=== PATIENT | female | born 1970 | race Hispanic/Latino ===

== ENCOUNTER 2024-03-28 14:05 | Emergency (ER) | payer BC, OTHER ==
--- OUTSIDE RECORDS SUMMARY | 2024-03-28 14:08 | XMS REPORT | Continuity of Care Document ---
Author Name Unknown Address [address] [place] [address] [facility] thconnect Address [address] [place] [address] Care Team Providers Care Time Stamp Assembler Name Role Phone El ROUSE, Lolita Primary Care Physician TATYANA LUGO Attending Clinician TATYANA Kolb Attending Clinician Brice beaulieu Doctor Unassigned, [place] Attending Clinician U navailable RADIOLOGY Attending Clinician Unavailable KAREN BLAEK Attending Clinician Unavailable Chinedu Wong MD Attending Clinician CHINEDU WONG Attending Clinician Unavail able Nurse, Gal Pcp Assessment Clinic Attending Denny baldwin Unavailable Sully Fishman MD Attending Clinician SULLY FISHMAN Attending Clinician Unavailable Payers Payer Name Policy Type Policy Number Effective Date Expirati on Date Source [facility] - OUT OF STATE [id number] 2022 00:00:00 Allergies, Adverse Reactions, Alerts Allergy Name Allergy Type Status Severity Reaction(s) Onset Date Inactive Date Treating Clinician Comments Source NO KNOWN ALLERGIE S Drug Class Active [facility] Social History Social Habit Start Date Stop Date Quantity Comments Source Gender identity [facility] Sexual orientation [facility] Alcohol intake 2022-12-01 00:00:00 2022-12-01 00:00:00 Current drinker of alcohol (finding) [facility] Tobacco use and exposure 2022-11-20 00:00:00 2022-11-20 00:00:00 Smokeless tobacco non-user [facility] History of Social function 2022-11-20 00:00:00 2022-11-20 00:00:00 [facility] Alcohol Comment 2022-11-20 00:00:00 2022-11-20 00:00:00 social [facility] Sex Assigned At 1970 00:00:00 1970 00:00:00 [facility] Smoking Status Start Date Stop Date Source Tobacco smoking consumption unknown [facility] Never smoked tobacco [facility] Medications Ordered Medication Name Filled Medication Name Start Date Stop Date Current Medication? Ordering Clinician Indication Dosage Frequency Signature (SIG) Comments Components Source rosuvastati n 5 mg tablet 2023-05 00:00: 00 Yes 1mg Jackson Samuel triamcinolo ne acetonide 0.1 % topical cream 2023-05 00:00: 00 Yes 1% Jackson Samuel nystatin 100,000 unit/gram topical cream 2023-05 00:00: 00 Yes 1unit/g gary Jackson Samuel cetirizine 10 mg tablet 2023-05 00:00: 00 Yes 1mg Jackson Samuel rosuvastati n 5 mg tablet 2023-05 00:00: 00 Yes 1mg Jackson Samuel amoxicillin 500 mg capsule 2023-05 00:00: 00 Yes 1mg Jackson Samuel 1 TAB PO QHS 06-17 00:00: 00 Yes 25 Jackson Samuel TAKE 1 TABLET BY MOUTH ONCE DAILY IN THE MORNING 30 MINUTES TO 1 HOUR BEFORE EATING OR DRINKING 05-15 00:00: 00 Yes Jackson Samuel TAKE ONE (1) TABLET(S) BY MOUTH ONCE A DAY AND SKIP PLACEBO. RESTART NEW PACK EVERY 3 WEEKS. 2022-05 00:00: 00 Yes Jackson Samuel 1 TABLET PO QD- NO PLACEBO- THEN RESTART A NEW PACK EVERY 3 WEEKS 2022-05 00:00: 00 06-18 00:00 :00 No 1530 Jackson Samuel TAKE 1 CAPSULE EVERY MORNING. 2022-05 00:00: 00 06-18 00:00 :00 No 10 Jackson Samuel TAKE ONE (1) CAPSULE(S) BY MOUTH EVERY MORNING. 2022-05 00:00: 00 06-18 00:00 :00 No Jackson Samuel TAKE 1 TABLET BY MOUTH EVERY 12 HOURS FOR 7 DAYS(NON [facility]) 11-30 00:00: 00 06-18 00:00 :00 No Jackson Samuel metroNIDAZO LE 500 mg tablet 11-30 00:00: 00 12-08 04:59 :00 No [id number] 500mg Take 1 tablet by mouth every 12 (twelve) hours for 7 days. [facility] 1 TABLET PO QD 10-23 00:00: 00 Yes 10 Jackson Samuel TAKE 1 TABLET DAILY. 10-23 00:00: 00 Yes 10 Jackson Samuel citalopram 20 mg tablet 10-22 00:00: 00 Yes 20mg Take 1 tablet by mouth in the morning. [facility] TAKE 1 TABLET DAILY. 10-21 00:00: 00 06-18 00:00 :00 No 20 Jackson Samuel TAKE 1 TABLET BY MOUTH EVERY DAY 07-02 00:00: 00 Yes Jackson Samuel TAKE 1 TABLET BY MOUTH EVERY DAY FOR 5 DAYS 01-10 00:00: 00 Yes Jackson Samuel TAKE 1 TABLET BY MOUTH EVERY DAY 01-10 00:00: 00 Yes Jackson Samuel TAKE 1 TABLET BY MOUTH EVERY DAY 11-29 00:00: 00 Yes Jackson Samuel Vital Signs Vital Name Observation Time Observation Value Comments S ource Systolic blood pressure 2022-11-20 20:45:00 146 mm[Hg] [facility] Diastolic blood pressure 2022-11-20 20:45:00 85 mm[Hg] [facility] Heart rate 2022-11-20 20:43:00 96 /min [facility] Respiratory rate 2022-11-20 20:43:00 18 /min [facility] Body height 2022-11-20 20:43:00 165.1 cm [facility] Body weight 2022-11-20 20:43:00 84.823 kg [facility] BMI 2022-11-20 20:43:00 31.12 kg/m2 [facility] Heart Rate 2024-03-23 16:07:00 87.00 /min Elizabeth en F Jimmie Respiratory Rate 2024-03-23 16:07:00 16.00 /min Jackson F Jimmie BP Systolic 2024-03-23 16:07:00 122 mm[Hg] Step hen F Jmimie BP Diastolic 2024-03-23 16:07:00 76 mm[Hg] Derrek phen F Jimmie Weight Measured 2024-03-23 16:07:00 197.00 pounds Jackson F Jimmie Height Measured 2024-03-23 16:07:00 65.00 inches Jackson F Jimmie Body Temperature 2024-03-23 16:07:00 97.90 degrees Jackson F Jimmie Height Measured 2024-03-12 13:04:00 65.00 inches Jackson F Jimmie Body Temperature 2024-03-12 13:04:00 98.00 degrees Jackson F Jimmie Heart Rate 2024-03-12 13:04:00 89.00 /min Elizabeth en F Jimmie Respiratory Rate 2024-03-12 13:04:00 18.00 /min Jackson F Jimmie BP Systolic 2024-03-12 13:04:00 122 mm[Hg] Step hen F Jimmie BP Diastolic 2024-03-12 13:04:00 70 mm[Hg] Derrek phen F Jimmie Weight Measured 2024-03-12 13:04:00 197.00 pounds Jackson F Jimmie BP Systolic 2023-06-17 13:42:00 126 mm[Hg] Step hen F Jimmie BP Diastolic 2023-06-17 13:42:00 66 mm[Hg] Derrek phen F Jimmie Weight Measured 2023-06-17 13:42:00 197.00 pounds Jackson F Jimmie Height Measured 2023-06-17 13:42:00 65.00 inches Jackson F Jimmie Body Temperature 2023-06-17 13:42:00 97.60 degrees Jackson F Jimmie Heart Rate 2023-06-17 13:42:00 95.00 /min Elizabeth en F Jimmie Respiratory Rate 2023-06-17 13:42:00 16.00 /min Jackson F Jimmie BP Systolic 2023-04-30 11:01:00 130 mm[Hg] Step hen F Jimmie BP Diastolic 2023-04-30 11:01:00 78 mm[Hg] Derrek phen F Ijmmie Weight Measured 2023-04-30 11:01:00 192.00 pounds Jackson F Jimmie Height Measured 2023-04-30 11:01:00 65.00 inches Jackson F Jimmie Body Temperature 2023-04-30 11:01:00 98.10 degrees Jackson F Jimmie Heart Rate 2023-04-30 11:01:00 97.00 /min Elizabeth en F Jimmie Respiratory Rate 2023-04-30 11:01:00 18.00 /min Jackson F Jimmie BP Systolic 2022-10-23 11:43:00 135 mm[Hg] Step hen F Jimmie BP Diastolic 2022-10-23 11:43:00 96 mm[Hg] Derrek phen F Jimmie Weight Measured 2022-10-23 11:43:00 182.00 pounds Jackson F Jimmie Height Measured 2022-10-23 11:43:00 65.00 inches Jackson F Jimmie Body Temperature 2022-10-23 11:43:00 96.90 degrees Jackson F Jimmie Heart Rate 2022-10-23 11:43:00 87.00 /min Elizabeth en F Jimmie Respiratory Rate 2022-10-23 11:43:00 18.00 /min Jackson F Jimmie BP Systolic 2022-10-21 08:08:00 124 mm[Hg] Step hen F Jimmie BP Diastolic 2022-10-21 08:08:00 80 mm[Hg] Derrek phen F Jimmie Weight Measured 2022-10-21 08:08:00 184.00 pounds Jackson F Jimmie Height Measured 2022-10-21 08:08:00 65.00 inches Jackson F Jimmie Body Temperature 2022-10-21 08:08:00 98.00 degrees Jackson F Jimmie Heart Rate 2022-10-21 08:08:00 93.00 /min Elizabeth en F Jimmie Respiratory Rate 2022-10-21 08:08:00 20.00 /min Jackson Samuel Procedures Procedure Date / Time Performed Performing Clinician Source EXTERNAL PROVIDER RECORDS 2023-05-26 06:01:00 Doctor Unassigned, [place] [facility] GC & CHLAMYDIA AMPLIFIED ASSAY 2022-11-20 21:05:00 Tatyana Lugo [facility] LAB ONLY PAP SMEAR-LIQUID BASED 2022-11-20 21:05:00 Tatyana Lugo [facility] HIGH RISK HPV-THIN PREP 2022-11-20 21:05:00 Tatyana Lugo [facility] TRICHOMONAS AMPLIFIED ASSAY 2022-11-20 21:05:00 Tatyana Lugo [facility] PAP SMEAR-LIQUID BASED-CP 2022-11-20 21:05:00 Tatyana Lugo [facility] ASSIGNMENT OF BENEFITS 2022-11-20 19:53:18 Docto r Unassigned, [place] [facility] Encounters Start Date/Time End Date/Time Encounter Type Admission Type Attending [facility] Facility Care Department Encounter ID Source 2024-03-23 16:16:21 2024-03-23 16:16:21 Outpatient [facility] [id number] Jackson Samuel 2024-03-23 00:00:00 2024-03-23 00:00:00 Outpatient Visit SFA [id number] Jackson Samuel 2024-03-12 13:02:57 2024-03-12 13:02:57 Outpatient SFA [facility] [id number] Jackson Samuel 2024-03-12 00:00:00 2024-03-12 00:00:00 Outpatient Visit SFA [id number] Jackson Samuel 2023-11-24 14:30:00 2023-11-24 14:30:00 Outpatient R TATYANA LUGO CHERYAL [facility] [id number] [facility] 2023-06-17 13:41:54 2023-06-17 13:41:54 Outpatient [facility] [id number] Jackson Samuel 2023-05-26 00:00:00 2023-05-26 00:00:00 Orders Only Doctor Unassigned, [place] [facility] 1.2.840.114 350.1.13.10 4.2.7.2.686 [id number] [facility] 2022-12-05 00:00:00 2022-12-05 00:00:00 Patient Secure Msg Doctor Unassigned, [place] [facility] 1.2.840.114 350.1.13.10 4.2.7.2.686 [id number] [facility] 2022-11-30 00:00:00 2022-11-30 00:00:00 Telephone Tatyana Lugo [facility] 1.2.840.114 350.1.13.10 4.2.7.2.686 [id number] [facility] 2022-11-25 09:30:00 2022-11-25 09:30:00 Outpatient R [facility] [id number] [facility] 2022-11-20 15:00:00 2022-11-20 16:10:19 Outpatient R TATYANA LUGO CHERYAL [facility] [id number] [facility] 2022-11-20 15:00:00 2022-11-20 16:10:19 Office Visit Tatyana Luog [facility] 1.2.840.114 350.1.13.10 4.2.7.2.686 [id number] [facility] 2022-11-20 00:00:00 2022-11-20 00:00:00 Orders Only Doctor Unassigned, [place] [facility] 1.2.840.114 350.1.13.10 4.2.7.2.686 [id number] [facility] 2022-11-08 00:00:00 2022-11-08 00:00:00 Outpatient R RADIOLOGY [facility] [id number] [facility] 2022-10-23 11:41:31 2022-10-23 11:41:31 Outpatient [facility] [id number] Jackson Samuel 2022-10-21 08:04:37 2022-10-21 08:04:37 Outpatient [facility] [id number] Jackson Samuel 2022-09-18 10:30:00 2022-09-18 10:30:00 Outpatient R KAREN BLAKE [facility] [id number] [facility] 2019-11-19 00:00:00 2019-11-19 00:00:00 Telephone [facility] 1.2840.114 350.1.13.10 4.2.7.2.686 [id number] [facility] 2019-11-19 00:00:00 2019-11-19 00:00:00 Telephone [facility] 1.2.840.114 350.1.13.10 4.2.7.2.686 [id number] 2019-11-18 10:00:00 2019-11-18 10:00:00 Outpatient R CHINEDU WONG [facility] [id number] [facility] 2019-11-18 09:16:27 2019-11-18 09:31:27 Laboratory Only Nurse, Gal Pcp Assessment Clinic [facility] 1.2.840.114 350.1.13.10 4.2.7.2.686 [id number] [facility] 2019-11-18 09:16:27 2019-11-18 09:31:27 Laboratory Only Nurse, Gal Pcp Assessment Clinic [facility] 1.2840.114 350.1.13.10 4.2.7.2.686 [id number] 2019-11-04 00:00:00 2019-11-04 00:00:00 [facility] 1.2.840.114 350.1.13.10 4.2.7.2.686 [id number] [facility] 2019-11-04 00:00:00 2019-11-04 00:00:00 Telephone Sravanthi [facility] 1.2.840.114 350.1.13.10 4.2.7.2.686 [id number] 2019-11-03 12:52:11 2019-11-03 13:07:11 Laboratory Only Nurse, Dagoberto Pcp Assessment Clinic Sravanthi [facility] 1.2.840.114 350.1.13.10 4.2.7.2.686 [id number] [facility] 2019-11-03 12:52:11 2019-11-03 13:07:11 Laboratory Only Nurse, Dagoberto Pcp Assessment Clinic [facility] 1.2.840.114 350.1.13.10 4.2.7.2.686 [id number] 2019-11-03 13:00:00 2019-11-03 13:00:00 Outpatient R SRAVANTHI [facility] [id number] [facility] Results Test Description Test Time Test Comments Results Result Co mments Source Jackson SamuelTRICHOMONAS, URINE, [id number] 00:00:00* Test Item Value Reference Range Interpretation Comme nts TRICHOMONAS, NAAT, URINE (te st code = 61678) NEGATIVE [facility] [id number] 00:00:00* Test Item Value Reference Range Interpretation Comme nts WBC (test code = 1001) 7.0 K/UL RBC (test code = 1002) 4.89 M/UL HEMOGLOBIN (test code = 1003) 13.2 G/DL HEMATOCRIT (test code = 1004) 41.9 % MCV (test code = 1005) 85.7 fL MCH (test code = 1006) 27.0 PG MCHC (test code = 1007) 31.5 G/DL RDW (test code = 1038) 12.2 % NEUTROPHILS (test code = 1008) 49.3 % LYMPHOCYTES (test code = 1010) 40.6 % MONOCYTES (test code = 1011) 8.0 % EOSINOPHILS (test code = 1012) 1.3 % BASOPHILS (test code = 1013) 0.7 % IMMATURE GRANULOCYTES (test code = 1036) 0.1 % NUCLEATED RBCS (test code = 1065) 0.0 /100WBC'S PLATELET COUNT (test code = 1015) 384 K/UL ABSOLUTE NEUTROPHILS (test c ode = 1066) 3.44 K/UL ABSOLUTE LYMPHOCYTES (test c ode = 1067) 2.84 K/UL ABSOLUTE MONOCYTES (test cod e = 1068) 0.56 K/UL ABSOLUTE EOSINOPHILS (test c ode = 1040) 0.09 K/UL ABSOLUTE BASOPHILS (test cod e = 1069) 0.05 K/UL ABS IMMATURE GRANULOCYTES (t est code = 1020) 0.01 K/UL ABS NUCLEATED RBCS (test cod e = 58206) 0.00 K/UL Jackson William AustinLIPID [id number] 00:00:00* Test Item Value Reference Range Interpretation Comme nts CHOLESTEROL (test code = 2210) 300 MG/DL TRIGLYCERIDES (test code = 2232) 387 MG/DL HDL CHOLESTEROL (test code = 2220) 43 MG/DL CALC LDL CHOL (test code = 2237) 191 MG/DL RISK RATIO LDL/HDL (test cod e = 2238) 4.44 RATIO Jackson SamuelCOMPREHENSIVE METABOLIC [id number] 00:00:00* Test Item Value Reference Range Interpretation Comme nts GLUCOSE (test code = 2217) 100 MG/DL BUN (test code = 2208) 15 MG/DL CREATININE (test code = 2214) 0.86 MG/DL eGFR (2020 CKD-EPI) (test co de = 55431) 82 ML/MIN/1.73 CALC BUN/CREAT (test code = 2235) 17 RATIO SODIUM (test code = 2231) 139 MEQ/L POTASSIUM (test code = 2228) 4.0 MEQ/L CHLORIDE (test code = 2215) 101 MEQ/L CARBON DIOXIDE (test code = 2206) 21 MEQ/L CALCIUM (test code = 2209) 9.7 MG/DL PROTEIN, TOTAL (test code = 2229) 7.5 G/DL ALBUMIN (test code = 2201) 4.5 G/DL CALC GLOBULIN (test code = 2240) 3.0 G/DL CALC A/G RATIO (test code = 2234) 1.5 RATIO BILIRUBIN, TOTAL (test code = 2207) 0.3 MG/DL ALKALINE PHOSPHATASE (test code = 2204) 94 U/L AST (test code = 2218) 21 U/L ALT (test code = 2219) 31 U/L Jackson William AustinURINALYSIS W/REFLEX [id number] 00:00:00* Test Item Value Reference Range Interpretation Comme nts COLOR (test code = 1501) YELLOW APPEARANCE (test code = 1502) CLEAR SPECIFIC GRAVITY (test code = 1503) 1.025 LEUKOCYTE ESTERASE (test cod e = 1504) 2+ NITRITE (test code = 1505) NEGATIVE pH (test code = 1506) 6.5 PROTEIN (test code = 1507) NEGATIVE GLUCOSE (test code = 1508) NEGATIVE KETONES (test code = 1509) NEGATIVE UROBILINOGEN (test code = 1510) 1.0 MG/DL BILIRUBIN (test code = 1511) NEGATIVE OCCULT BLOOD (test code = 1512) NEGATIVE WHITE BLOOD CELLS (test code = 1513) 0-5 /HPF RED BLOOD CELLS (test code = 1514) 0-2 /HPF EPITHELIAL CELLS (test code = 81825) 16-20 /HPF BACTERIA (test code = 1515) 3+ CASTS, HYALINE (test code = 1517) NONE SEEN Jackson William AustinHIV 1/2 4TH GEN, RFLX [id number] 00:00:00* Test Item Value Reference Range Interpretation Comme nts HIV 1/2 4TH GEN, RFLX CONF ( test code = 3514) NON-REACTIVE Jackson SamuelHEPATITIS C [id number] 00:00:00* Test Item Value Reference Range Interpretation Comme nts HEPATITIS C ANTIBODY (test c ode = 4675) NON-REACTIVE Jackson William [id number] 00:00:00* Test Item Value Reference Range Interpretation Comme nts RPR RESULT (test code = 3501) NON-REACTIVE RPR TITER (test code = 3500) NOT INDIC. TITER Jackson SamuelHERPES SIMPLEX VIRUS IGG AND [id number] 00:00:00* Test Item Value Reference Range Interpretation Comme nts HERPES SIMPLEX 1 AB, IgG (te st code = 71936) 49.400 INDEX HERPES SIMPLEX 2 AB, IgG (te st code = 41958) 0.182 INDEX HERPES SIMPLEX AB, IgM (test code = 41961) 0.38 INDEX Jackson DavisP TEST, THINPREP, [id number] 00:00:00* Test Item Value Reference Range Interpretation Comme nts SOURCE: (test code = 800) Cervical/Endo cervic al SLIDES: (test code = 8011) 1 LMP: (test code = 8021) NOT GIVEN SPECIMEN ADEQUACY: (test code = 44928) (NOTE) INTERPRETATION: (test code = 23005) NILM/NO EPITH. ABNORMALITY;SEE BELOW OTHER COMMENTS: (test code = 8081) (NOTE) ALARM MECHANIC: (test code = 8101) ALLEN Polanco(ASCP) IAC PATHOLOGIST INTERPRETATION BY: (test code = 8122) Jennifer Majano M.D. LOCATION: (test code = 66529) (NOTE) CPT: (test code = 8140) (NOTE) Jackson Sellers TEST, THINPREP, [id number] 00:00:00* Test Item Value Reference Range Interpretation Comme nts SOURCE: (test code = 800) Cervical/Endo cervic al SLIDES: (test code = 8011) 1 LMP: (test code = 8021) NOT GIVEN SPECIMEN ADEQUACY: (test code = 87532) (NOTE) INTERPRETATION: (test code = 40905) NILM/NO EPITH. ABNORMALITY;SEE BELOW OTHER COMMENTS: (test code = 8081) (NOTE) ALARM MECHANIC: (test code = 8101) ALLEN Polanco(ASCP) IAC PATHOLOGIST INTERPRETATION BY: (test code = 8122) Jennifer Majano M.D. LOCATION: (test code = 33905) (NOTE) CPT: (test code = 8140) (NOTE) Jackson F AustinVAGINAL PATHOGENS DNA [id number] 00:00:00* Test Item Value Reference Range Interpretation Comme nts SAI SPECIES (test code = ) NEGATIVE G. VAGINALIS (test code = 79163) POSITIVE T. VAGINALIS (test code = 30335) NEGATIVE Jackson William AustinTRICHOMONAS, URINE, [id number] 00:00:00* Test Item Value Reference Range Interpretation Comme nts TRICHOMONAS, NAAT, URINE (te st code = 25841) NEGATIVE Jackson William AustinCT/NG, TMA, [id number] 00:00:00* Test Item Value Reference Range Interpretation Comme nts CHLAMYDIA, NAAT, THINPREP (t est code = 70344) NEGATIVE GONORRHEA, NAAT, THINPREP (t est code = 92498) NEGATIVE PDFE (test code = PDFReport) PDF Jackson SamuelVAGINAL PATHOGENS DNA [id number] 00:00:00* Test Item Value Reference Range Interpretation Comme nts SAI SPECIES (test code = ) NEGATIVE G. VAGINALIS (test code = 68207) POSITIVE T. VAGINALIS (test code = 34531) NEGATIVE Jackson William AustinCT/NG, TMA, [id number] 00:00:00* Test Item Value Reference Range Interpretation Comme nts CHLAMYDIA, NAAT, THINPREP (t est code = 01502) NEGATIVE GONORRHEA, NAAT, THINPREP (t est code = 03661) NEGATIVE PDFE (test code = PDFReport) PDF Jackson William AustinTRICHOMONAS, URINE, [id number] 00:00:00* Test Item Value Reference Range Interpretation Comme nts TRICHOMONAS, NAAT, URINE (te st code = 48442) NEGATIVE Jackson William AustinCOMPREHENSIVE METABOLIC [id number] 00:00:00* Test Item Value Reference Range Interpretation Comme nts GLUCOSE (test code = 2217) 92 MG/DL BUN (test code = 2208) 13 MG/DL CREATININE (test code = 2214) 0.83 MG/DL eGFR (2020 CKD-EPI) (test co de = 81879) 86 ML/MIN/1.73 CALC BUN/CREAT (test code = 2235) 16 RATIO SODIUM (test code = 2231) 139 MEQ/L POTASSIUM (test code = 2228) 4.5 MEQ/L CHLORIDE (test code = 2215) 104 MEQ/L CARBON DIOXIDE (test code = 2206) 23 MEQ/L CALCIUM (test code = 2209) 9.5 MG/DL PROTEIN, TOTAL (test code = 2229) 7.2 G/DL ALBUMIN (test code = 2201) 4.8 G/DL CALC GLOBULIN (test code = 2240) 2.4 G/DL CALC A/G RATIO (test code = 2234) 2.0 RATIO BILIRUBIN, TOTAL (test code = 2207) 0.2 MG/DL ALKALINE PHOSPHATASE (test code = 2204) 71 U/L AST (test code = 2218) 17 U/L ALT (test code = 2219) 19 U/L Jackson SamuelLIPID [id number] 00:00:00* Test Item Value Reference Range Interpretation Comme nts CHOLESTEROL (test code = 2210) 290 MG/DL TRIGLYCERIDES (test code = 2232) 232 MG/DL HDL CHOLESTEROL (test code = 2220) 57 MG/DL CALC LDL CHOL (test code = 2237) 190 MG/DL RISK RATIO LDL/HDL (test cod e = 2238) 3.33 RATIO Jackson SamuelURINALYSIS W/REFLEX [id number] 00:00:00* Test Item Value Reference Range Interpretation Comme nts COLOR (test code = 1501) YELLOW APPEARANCE (test code = 1502) CLEAR SPECIFIC GRAVITY (test code = 1503) 1.020 LEUKOCYTE ESTERASE (test cod e = 1504) NEGATIVE NITRITE (test code = 1505) NEGATIVE pH (test code = 1506) 6.5 PROTEIN (test code = 1507) NEGATIVE GLUCOSE (test code = 1508) NEGATIVE KETONES (test code = 1509) NEGATIVE UROBILINOGEN (test code = 1510) 0.2 MG/DL BILIRUBIN (test code = 1511) NEGATIVE OCCULT BLOOD (test code = 1512) NEGATIVE Jackson SamuelCBC W/AUTO [id number] 00:00:00* Test Item Value Reference Range Interpretation Comme nts WBC (test code = 1001) 5.8 K/UL RBC (test code = 1002) 4.76 M/UL HEMOGLOBIN (test code = 1003) 13.1 G/DL HEMATOCRIT (test code = 1004) 40.4 % MCV (test code = 1005) 84.9 fL MCH (test code = 1006) 27.5 PG MCHC (test code = 1007) 32.4 G/DL RDW (test code = 1038) 12.9 % NEUTROPHILS (test code = 1008) 49.3 % LYMPHOCYTES (test code = 1010) 38.8 % MONOCYTES (test code = 1011) 9.5 % EOSINOPHILS (test code = 1012) 1.2 % BASOPHILS (test code = 1013) 1.0 % IMMATURE GRANULOCYTES (test code = 1036) 0.2 % NUCLEATED RBCS (test code = 1065) 0.0 /100WBC'S PLATELET COUNT (test code = 1015) 384 K/UL ABSOLUTE NEUTROPHILS (test c ode = 1066) 2.86 K/UL ABSOLUTE LYMPHOCYTES (test c ode = 1067) 2.25 K/UL ABSOLUTE MONOCYTES (test cod e = 1068) 0.55 K/UL ABSOLUTE EOSINOPHILS (test c ode = 1040) 0.07 K/UL ABSOLUTE BASOPHILS (test cod e = 1069) 0.06 K/UL ABS IMMATURE GRANULOCYTES (t est code = 1020) 0.01 K/UL ABS NUCLEATED RBCS (test cod e = 22837) 0.00 K/UL Jackson SamuelCOMPREHENSIVE METABOLIC [id number] 00:00:00* Test Item Value Reference Range Interpretation Comme nts GLUCOSE (test code = 2217) 92 MG/DL BUN (test code = 2208) 13 MG/DL CREATININE (test code = 2214) 0.83 MG/DL eGFR (2020 CKD-EPI) (test co de = 20018) 86 ML/MIN/1.73 CALC BUN/CREAT (test code = 2235) 16 RATIO SODIUM (test code = 2231) 139 MEQ/L POTASSIUM (test code = 2228) 4.5 MEQ/L CHLORIDE (test code = 2215) 104 MEQ/L CARBON DIOXIDE (test code = 2206) 23 MEQ/L CALCIUM (test code = 2209) 9.5 MG/DL PROTEIN, TOTAL (test code = 2229) 7.2 G/DL ALBUMIN (test code = 2201) 4.8 G/DL CALC GLOBULIN (test code = 2240) 2.4 G/DL CALC A/G RATIO (test code = 2234) 2.0 RATIO BILIRUBIN, TOTAL (test code = 2207) 0.2 MG/DL ALKALINE PHOSPHATASE (test code = 2204) 71 U/L AST (test code = 2218) 17 U/L ALT (test code = 2219) 19 U/L Jackson SamuelLIPID [id number] 00:00:00* Test Item Value Reference Range Interpretation Comme nts CHOLESTEROL (test code = 2210) 290 MG/DL TRIGLYCERIDES (test code = 2232) 232 MG/DL HDL CHOLESTEROL (test code = 2220) 57 MG/DL CALC LDL CHOL (test code = 2237) 190 MG/DL RISK RATIO LDL/HDL (test cod e = 2238) 3.33 RATIO Jackson William AustinURINALYSIS W/REFLEX [id number] 00:00:00* Test Item Value Reference Range Interpretation Comme nts COLOR (test code = 1501) YELLOW APPEARANCE (test code = 1502) CLEAR SPECIFIC GRAVITY (test code = 1503) 1.020 LEUKOCYTE ESTERASE (test cod e = 1504) NEGATIVE NITRITE (test code = 1505) NEGATIVE pH (test code = 1506) 6.5 PROTEIN (test code = 1507) NEGATIVE GLUCOSE (test code = 1508) NEGATIVE KETONES (test code = 1509) NEGATIVE UROBILINOGEN (test code = 1510) 0.2 MG/DL BILIRUBIN (test code = 1511) NEGATIVE OCCULT BLOOD (test code = 1512) NEGATIVE Jackson William AustinCBC W/AUTO [id number] 00:00:00* Test Item Value Reference Range Interpretation Comme nts WBC (test code = 1001) 5.8 K/UL RBC (test code = 1002) 4.76 M/UL HEMOGLOBIN (test code = 1003) 13.1 G/DL HEMATOCRIT (test code = 1004) 40.4 % MCV (test code = 1005) 84.9 fL MCH (test code = 1006) 27.5 PG MCHC (test code = 1007) 32.4 G/DL RDW (test code = 1038) 12.9 % NEUTROPHILS (test code = 1008) 49.3 % LYMPHOCYTES (test code = 1010) 38.8 % MONOCYTES (test code = 1011) 9.5 % EOSINOPHILS (test code = 1012) 1.2 % BASOPHILS (test code = 1013) 1.0 % IMMATURE GRANULOCYTES (test code = 1036) 0.2 % NUCLEATED RBCS (test code = 1065) 0.0 /100WBC'S PLATELET COUNT (test code = 1015) 384 K/UL ABSOLUTE NEUTROPHILS (test c ode = 1066) 2.86 K/UL ABSOLUTE LYMPHOCYTES (test c ode = 1067) 2.25 K/UL ABSOLUTE MONOCYTES (test cod e = 1068) 0.55 K/UL ABSOLUTE EOSINOPHILS (test c ode = 1040) 0.07 K/UL ABSOLUTE BASOPHILS (test cod e = 1069) 0.06 K/UL ABS IMMATURE GRANULOCYTES (t est code = 1020) 0.01 K/UL ABS NUCLEATED RBCS (test cod e = 34401) 0.00 K/UL Jackson Samuel Notes Date/Time Note Provider Source Jackson Berger [facility]2024-11-08 00:00:00 Jackson Berger [facility]2023-07-31 08:14:16 Patient notified of results and rx sent to pharmacy on file. No questions or concerns expressed. Arti Barajas RN 12/02/2022 8:15 AM [id number] 13:38:31 Please inform Ms. Jean that the pap results showed BV. I have sent a prescription of [id number] tablets, take one tablet, orally, twice daily for seven days for treatment. Tatyana Lugo NP 11/30/2022 1:40 PM [id number] 15:00:00 Results pending. Tatyana Lugo NP 11/21/2022 8:09 AM [facility]2023-07-19 15:00:00 Pap results pending. Tatyana Lugo NP 11/22/2022 9:41 AM [facility]2023-07-19 15:00:00 Good afternoon, I have reviewed the results of the pap / high risk HPV screenings; both are negative. I have also reviewed the results of STD screenings; gonorrhea, chlamydia, and trichomonas screenings negative. Tatyana Lugo NP 11/30/2022 1:29 PM [facility]
[2024-03-28] MEDS ORDERED: NA CHLORIDE 0.9% 1,000 ML ONE (14:39)
[2024-03-28] MEDS ORDERED: KETOROLAC 30 MG/ML INJ ONE (14:39)
--- NOTE | 2024-03-28 14:48 | RAD REPORT ---
EXAMINATION: CT ABDOMEN AND PELVIS WITHOUT CONTRAST CLINICAL INDICATION: r/o renal stone TECHNIQUE: CT abdomen and pelvis was performed, without IV contrast, as per department protocol. Axia l, sagittal and coronal reconstructions were obtained. One or more of the following dose reduction techniques were used: Automated exposure control, adjustment of the mA and kV according to the patien t size, and iterative reconstruction. Unless otherwise specified, incidental findings do not require dedicated imaging follow-up. COMPARISON: No prior exam. FINDINGS: The lack of intravenous contrast limits the sensitivity of this exam for evaluation of solid visceral organs, vascular structures, and retroperitoneum. LOWER CHEST: The visualized lung bases are clear. LIVER:Normal in size and contour. No focal lesion. Grossly unremarkable gallbladder. SPLEEN: Normal size. No focal lesion. PANCREAS: No mass, ductal dilation, or cristal-pancreatic fluid. ADRENALS: Normal; no mass. KIDNEYS AND URETERS: Normal size and contour. No hydronephrosis. URINARY BLADDER: Normal contour. GASTROINTESTINAL TRACT: No evidence of bowel obstruction, significant free fluid, free air or abscess . APPENDIX: Normal appendix. LYMPH NODES: No lymphadenopathy. MUSCULOSKELETAL: No acute or suspicious osseous abnormality. ADDITIONAL FINDINGS: Small fat-containing umbilical hernia. IMPRESSION: No acute or concerning abnormalities in the abdomen or pelvis, with evaluation limited by lack of IV contrast.
[2024-03-28 14:52] LABS: Sqamous Epithelial <5 /HPF (None Seen); Urine Bacteria None Seen /HPF (<20); Urine Bilirubin NEGATIVE (Negative); Urine Blood Negative (Negative); Urine Clarity Clear (Clear); Urine Color Light-Yellow (Yellow); Urine Culture Reflex Order NOT NEEDED; Urine Glucose NEGATIVE (Negative); Urine Ketones NEGATIVE (Negative); Urine Microscopic Reflex YN ORDER UMIC; Urine Mucus Slight /HPF (None Seen); Urine Nitrite NEGATIVE (Negative); Urine Protein NEGATIVE (Negative); Urine RBC <5 /HPF (None Seen); Urine Urobilinogen Normal (Normal); Urine WBC <5 /HPF (<5); Urine Yeast (Budding) Trace /HPF (None Seen); Urine pH 7.5 (5.0-7.0)
[2024-03-28 15:03] LABS: Absolute Basophils 0.1 K/uL (0-0.5); Absolute Eosinophils 0.1 K/uL (0-0.5); Absolute Monocytes 0.9 K/uL (0.1-1.3); Absolute Neutrophil 3.9 K/uL (1.8-8.0); Basophils % 0.9 % (0-1.3); Eosinophils % 1.3 % (0-4.4); Hematocrit 41.6 % (36.0-45.0); Hemoglobin 13.4 g/dL (12.0-15.0); Lymphocytes % 37.3 % (15.3-44.8); MCH 27.1 pg (27.0-35.0); MCHC 32.3 g/dL (32.0-36.0); MCV 83.9 fL (80-100); Monocytes % 11.6 % (3.3-12.3); Neutrophils % 48.9 % (41.7-73.7); Platelets 340 thou/uL (152-406); RBC Red Blood Cell Count 4.96 M/uL (3.86-4.86); Red Cell Distribution Width 12.9 % (12.1-15.2)
[2024-03-28 15:19] LABS: Albumin 3.7 g/dL (3.4-5.0); Albumin/Globulin Ratio 0.9 (1.1-1.8); Anion Gap 10.9 mEq/L (5.0-15.0); Bilirubin Total 0.3 mg/dL (0.2-1.0); Globulin 4.1 g/dL (2.3-3.5); Potassium 3.9 mEq/L (3.5-5.1); Protein, Total 7.8 g/dL (6.4-8.2)
--- NOTE | 2024-03-28 15:36 | EDPHYS ---
Physician Documentation [facility] Name: Sydney Morgan Age: 53 yrs Sex: Female : 1970 Arrival Date: 03/28/2024 Time: 14:05 Bed 13 Private MD: ED Physician Smooth Juárez HPI: 03/28 14:09 This 53 yrs old Female presents to ER via Unassigned with complaints of Low jh7 Back Pain. 14:09 53-year-old female with no past medical history presents to the ER with left flank pain jh7 radiating to the left lower quadrant since Friday. She denies any dysuria, hematuria, injury, fever, or any other symptoms. She reports that she had labs with her PCP recently that said that her kidney values were elevated. Reports that the pain is intermittent and can become so severe that it keeps her up at night.. Historical: - Allergies: 14:28 No Known Allergies; cm10 - PMHx: 14:28 Hypercholesterolemia; cm10 - PSHx: 14:28 None; cm10 - Immunization history:: Adult Immunizations up to date. - Infectious Disease History:: Denies. - Social history:: Smoking status: Patient denies any tobacco usage or history of. ROS: 14:09 Constitutional: Per HPI jh7 Exam: 14:09 Constitutional: This is a well developed, well nourished patient who is awake, alert, jh7 and in no acute distress. Head/Face: Normocephalic, atraumatic. Cardiovascular: Regular rate and rhythm with a normal S1 and S2. No gallops, murmurs, or rubs. Normal PMI, no JVD. No pulse deficits. Respiratory: Lungs have equal breath sounds bilaterally, clear to auscultation and percussion. No rales, rhonchi or wheezes noted. No increased work of breathing, no retractions or nasal flaring. Abdomen/GI: Soft, non-tender, with normal bowel sounds. No distension or tympany. No guarding or rebound. No evidence of tenderness throughout. Skin: Warm, dry with normal turgor. Normal color with no rashes, no lesions, and no evidence of cellulitis. MS/ Extremity: Pulses equal, no cyanosis. Neurovascular intact. Full, normal range of motion. Neuro: Awake and alert, GCS 15, oriented to person, place, time, and situation. Motor strength 5/5 in all extremities. Sensory grossly intact. Normal gait. 14:09 : CVA tenderness, on the left, Vital Signs: 14:27 BP 147 / 93; Pulse 86; Resp 16; Temp 98.6(O); Pulse Ox 99% on R/A; Weight 86.18 kg; cm10 Height 5 ft. 5 in. ; Pain 8/10; 16:01 BP 138 / 82; Pulse 81; Resp 18; Temp 98; Pulse Ox 100% on R/A; ph 14:27 Body Mass Index 31.62 (86.18 kg, 165.1 cm) cm10 14:27 Pain Scale: Adult cm10 MDM: 14:09 Medical Screening Exam initiated [facility] 15:22 Differential diagnosis: arthritis, strain, fracture, sciatica, UTI, Ureterolithiasis. [facility] Data reviewed: vital signs, nurses notes, lab test result(s), radiologic studies, CT scan. I considered the following discharge prescriptions or medication management in the emergency department Medications were administered in the Emergency Department. See MAR. Counseling: I had a detailed discussion with the patient and/or guardian regarding the historical points, exam findings, and any diagnostic results supporting the discharge/admit diagnosis, to return to the emergency department if symptoms worsen or persist or if there are any questions or concerns that arise at home. Response to treatment: the patient's symptoms have markedly improved after treatment. 03/28 14:16 Order name: CBC with Diff; Complete Time: 15:20 [facility] 03/28 14:16 Order name: CMP; Complete Time: 15:20 [facility] 03/28 14:16 Order name: Lipase; Complete Time: 15:20 [facility] 03/28 14:16 Order name: Urinalysis w/ reflexes; Complete Time: 15:20 [facility] 03/28 14:16 Order name: CT Abd/Pelvis - Without Contrast; Complete Time: 14:52 [facility] 03/28 14:16 Order name: IV Saline Lock; Complete Time: 14:50 [facility] 03/28 14:16 Order name: Labs collected and sent; Complete Time: 14:50 [facility] Administered Medications: 14:58 Drug: TORadol - Ketorolac IVP 30 mg IVP once Route: IVP; Site: right antecubital; ph 16:01 Follow up: Response: No adverse reaction ph 14:58 Drug: NS 0.9% IV 1000 ml IV at 1 bolus Per protocol; to be given as a bolus over 60 ph minutes Route: IV; Rate: 1 bolus; Site: right antecubital; 16:01 Follow up: Response: No adverse reaction; IV Status: Completed infusion; IV Intake: ph 1000ml Disposition Summary: 03/28/24 15:36 Discharge Ordered Notes: Location: Home [facility] Problem: new [facility] Symptoms: have improved [facility] Condition: Stable [facility] Diagnosis - Low back pain [facility] Followup: [facility] - With: Private Physician - When: 2 - 3 days - Reason: Recheck today's complaints Discharge Instructions: - Discharge Summary Sheet [facility] - Acute Back Pain, Adult [facility] - Musculoskeletal Pain [facility] Forms: - Medication Reconciliation Form [facility] - Antibiotic Education [facility] - Patient Portal Instructions [facility] - Leadership Thank You Letter [facility] Prescriptions: - Zanaflex 4 mg Oral Tablet - take 1 tablet ORAL route every 8 hours As needed; 20 tablet; Refills: 0, [facility] Product Selection Permitted - Medrol (Timbo) 4 mg Oral Tablets, Dose Pack - take 1 tablet ORAL route as directed - follow package instructions; 1 packet; [facility] Refills: 0, Product Selection Permitted Signatures: Dispatcher [employer] Jazmín Kay, RN RN Sydney Celaya, [employer] D[employer] [place] [id number] Abbi Bowman RN RN cm10 Corrections: (The following items were deleted from the chart) 14:28 14:28 Home Meds: None; cm10 cm10 14:28 14:28 PMHx: None; cm10 cm10
--- NOTE | 2024-03-28 15:36 | ER ---
Nurse's Notes [facility] Name: Sydney Morgan Age: 53 yrs Sex: Female : 1970 Arrival Date: 03/28/2024 Time: 14:05 Bed 13 Private MD: Diagnosis: Low back pain Presentation: 03/28 14:27 Chief complaint: Patient states: Left sided flank pain onset Friday. Pt denies any cm10 other symptoms. Coronavirus screen: Client denies travel out of the [place] in the last 14 days. Ebola Screen: Patient denies travel to an Ebola-affected area in the 21 days before illness onset. No symptoms or risks identified at this time. Initial Sepsis Screen: Does the patient meet any 2 criteria? No. Patient's initial sepsis screen is negative. Does the patient have a suspected source of infection? No. Patient's initial sepsis screen is negative. Risk Assessment: Do you want to hurt yourself or someone else? Patient reports no desire to harm self or others. Onset of symptoms was March 26, 2024. 14:27 Method Of Arrival: Ambulatory cm10 14:27 Acuity: DAO 3 cm10 Triage Assessment: 14:28 General: Appears in no apparent distress. uncomfortable, Behavior is calm, cooperative. cm10 Neuro: No deficits noted. Level of Consciousness is awake, alert, obeys commands, Oriented to person, place, time, situation, Appropriate for age. Historical: - Allergies: 14:28 No Known Allergies; cm10 - PMHx: 14:28 Hypercholesterolemia; cm10 - PSHx: 14:28 None; cm10 - Immunization history:: Adult Immunizations up to date. - Infectious Disease History:: Denies. - Social history:: Smoking status: Patient denies any tobacco usage or history of. Screenin:35 [facility] ED Fall Risk Assessment (Adult) History of falling in the last 3 months, ph including since admission No falls in past 3 months (0 pts) Confusion or Disorientation No (0 pts) Intoxicated or Sedated No (0 pts) Impaired Gait No (0 pts) Mobility Assist Device Used No (0 pt) Altered Elimination No (0 pt) Score/Fall Risk Level 0 - 2 = Low Risk Oriented to surroundings, Maintained a safe environment, Hourly rounding (assess needs \T\ fall precautionary measures) done. Abuse screen: Denies threats or abuse. Has been threatened or abused. Nutritional screening: No deficits noted. Tuberculosis screening: No symptoms or risk factors identified. Assessment: 14:34 General: Appears in no apparent distress. Behavior is calm, cooperative. Pain: ph Complains of pain in posterior aspect of left lateral abdomen and anterior aspect of left lateral abdomen. Neuro: Level of Consciousness is awake, alert, obeys commands, Oriented to person, place, time, situation. Cardiovascular: Capillary refill < 3 seconds in bilateral fingers Patient's skin is warm and dry. Respiratory: Airway is patent Respiratory effort is even, unlabored. GI: Patient currently denies diarrhea, nausea, vomiting. : Reports pain in left flank(s). Derm: Skin is pink, warm \T\ dry. Vital Signs: 14:27 BP 147 / 93; Pulse 86; Resp 16; Temp 98.6(O); Pulse Ox 99% on R/A; Weight 86.18 kg; cm10 Height 5 ft. 5 in. ; Pain 8/10; 16:01 BP 138 / 82; Pulse 81; Resp 18; Temp 98; Pulse Ox 100% on R/A; ph 14:27 Body Mass Index 31.62 (86.18 kg, 165.1 cm) cm10 14:27 Pain Scale: Adult cm10 ED Course: 14:08 Patient arrived in ED. ra3 14:09 [facility] jh7 14:09 Smooth Juárez MD is Attending Physician. 7 14:28 Triage completed. cm10 14:28 Jazmín Al, RN is Primary Nurse. ph 14:28 Arm band placed on left wrist. Patient placed in an exam room, on a stretcher. cm10 14:36 Patient has correct armband on for positive identification. Door closed. Noise ph minimized. Warm blanket given. 14:42 CT Abd/Pelvis - Without Contrast In Process Unspecified. EDMS 14:55 Missed attempt(s): 20 gauge in right Bleeding controlled, band aid applied, catheter am7 tip intact. 14:59 Initial lab(s) drawn, by ca, sent to lab. Urine collected: clean catch specimen. ph Inserted saline lock: 22 gauge in right antecubital area, using aseptic technique. Blood collected. Flushed with 10 mL NS. 16:02 No provider procedures requiring assistance completed. IV discontinued, intact, ph bleeding controlled, No redness/swelling at site. Pressure dressing applied. Administered Medications: 14:58 Drug: TORadol - Ketorolac IVP 30 mg IVP once Route: IVP; Site: right antecubital; ph 16:01 Follow up: Response: No adverse reaction ph 14:58 Drug: NS 0.9% IV 1000 ml IV at 1 bolus Per protocol; to be given as a bolus over 60 ph minutes Route: IV; Rate: 1 bolus; Site: right antecubital; 16:01 Follow up: Response: No adverse reaction; IV Status: Completed infusion; IV Intake: ph 1000ml Medication: 14:36 VIS not applicable for this client. ph Intake: 16:01 IV: 1000ml; Total: 1000ml. ph Outcome: 15:36 Discharge ordered by MD. fregoso 16:02 Discharged to home ambulatory, ph 16:02 Condition: good 16:02 Discharge instructions given to patient, Instructed on discharge instructions, follow up and referral plans. medication usage, Demonstrated understanding of instructions, follow-up care, medications, Prescriptions given X 2, 16:03 Patient left the ED. ph Signatures: Dispatcher [employer] EDMS Jazmín Al RN RN ph Sydney Celaya, SECURITY POLICE OFFICER SECURITY POLICE OFFICER 7 Abbi Bowman RN RN 10 Mary Bergman 3 Rena Guillory am7 Corrections: (The following items were deleted from the chart) 14:28 14:28 Home Meds: None; cm10 cm10 14:28 14:28 PMHx: None; cm10 cm10
[2024-03-28 18:22] VITALS: BP 138/82; TEMP 98; O2SAT 100
== END 2024-03-28 16:03 | disposition home or self-care (01) ==
LOC: ER 14:05
DX: M54.50 Low back pain, unspecified (principal)
CPT/HCPCS: 96361; 85025; 81001; 36415; 83690; 80053; 74176; 96374; 99284; J7030